=== PATIENT | male | born 1970 | race African-American/Black ===

== ENCOUNTER 2020-01-22 11:01 | Emergency (ER) | payer MEDICAID ==
[~2020-01-22] VITALS: Ht 188 cm; Wt 95.0 kg
[2020-01-22] MEDS ORDERED: MORPHINE SULFATE 4 MG/ML CPJ (NOT FOR IM USE) IV STA (11:30)
[2020-01-22] MEDS ORDERED: GABAPENTIN 100MG CAPSULE PO ONE (11:30)
[2020-01-22] MEDS ORDERED: ONDANSETRON HCL 4MG/2ML INJ IV STA (11:30)
[2020-01-22] MEDS ORDERED: MORPHINE SULFATE 4 MG/ML CPJ (NOT FOR IM USE) IV NR (14:00)
[2020-01-22] MEDS ORDERED: KETOROLAC 30MG/ML VIAL IV NR (14:00)
[2020-01-22 17:25] VITALS: BP 138/86
== END 2020-01-22 20:16 | disposition home or self-care (01) ==
LOC: ER 11:01
DX: G89.18 Other acute postprocedural pain (principal); M79.662 Pain in left lower leg; R03.0 Elevated blood-pressure reading, without diagnosis of hypertension; Z91.81 History of falling; Z09 Encounter for follow-up examination after completed treatment for conditions other than malignant neoplasm; Z87.828 Personal history of other (healed) physical injury and trauma
CPT/HCPCS: 73560; 96374; 96375; 96376; 99284; J1885; J2270; J2405; Z7610

== ENCOUNTER 2020-02-29 17:32 | Emergency (ER) | payer MEDICAID ==
[~2020-02-29] VITALS: Ht 185.4 cm; Wt 92.0 kg
[2020-02-29] MEDS ORDERED: SODIUM CHLORIDE 0.9% 1,000 ML IV ONE (17:53)
[2020-02-29] MEDS ORDERED: KETOROLAC 30MG/ML VIAL IV STA (17:53)
[2020-02-29] MEDS ORDERED: METOCLOPRAMIDE HCL 10MG/2ML VIAL IV ONE (18:00)
[2020-02-29] MEDS ORDERED: DIPHENHYDRAMINE 50MG/ML VIAL IV ONE (18:00)
[2020-02-29 19:04] LABS: BASOPHILS % 1.1 % (0.0-2.0); EOSINOPHILS % 0.4 % (0.0-5.0); HEMATOCRIT. 32.2 % (42.0-52.0); HEMOGLOBIN. 10.7 g/dL (14.0-18.0); LYMPHOCYTES % 23.4 % (20.0-50.0); MEAN CORPUSCULAR HEMOGLOBIN 27.1 pg (28.0-32.0); MEAN CORPUSCULAR VOLUME 81.7 fL (80.0-94.0); MEAN PLATELET VOLUME 7.8 fl (7.4-10.4); MONOCYTES % 8.8 % (2.0-8.0); NEUTROPHILS % 66.3 % (40.0-76.0); PLATELET 256 x1000/uL (130-400); RED BLOOD CELL COUNT 3.94 mill/uL (4.7-6.1); RED CELL DISTRIBUTION WIDTH 16.3 % (11.6-14.6)
[2020-02-29 19:11] LABS: CHLORIDE 107 mEq/L (98-107)
[2020-02-29] MEDS ORDERED: POTASSIUM CHLORIDE 20MEQ TABLET SR PO ONE (20:15)
[2020-02-29 21:13] VITALS: BP 145/80
== END 2020-02-29 21:14 | disposition home or self-care (01) ==
LOC: ER 17:32
DX: R51 Headache (principal); M79.605 Pain in left leg; E87.6 Hypokalemia; F12.10 Cannabis abuse, uncomplicated; Z98.890 Other specified postprocedural states
CPT/HCPCS: 36415; 73590; 80053; 85025; 93970; 96374; 96375; 99285; J1200; J1885; J2765; J7030